=== PATIENT | male | born 1965 | race Two or more races ===

== ENCOUNTER 2017-03-22 11:57 | Emergency (ER) | payer MEDICAID ==
[~2017-03-22 11:57] MED LIST: ALLERCLEAR10 MG PO; AMARYL2 MG PO; ASPIRIN EC LOW81 MG PO; ASPIRIN EC81 MG PO; ASPIRIN81 MG PO; CARBATROL200 MG; CARBATROL200 MG PO; CIPRO500 MG PO; COLACE100 M1 PO; COLACE100 MG PO; CRESTOR10 MG PO; CRESTOR20 MG PO; CRESTOR5 MG; D-VERT25 MG; DARVOCET-N 1001 TAB; DIAZEPAM2 MG; FLEXERIL10 MG PO; GABAPENTIN100 MG PO; GAS GONE80 MG PO; GLIMEPIRIDE4 M1 PO; GLUCOPHAGE1000 M1 PO; GLUCOPHAGE1000 MG; GLUCOPHAGE500 MG PO; GLUCOTROL XL10 M1 PO; GLUCOTROL XL10 MG; HUMULIN R100 U/ML SQ; IBUPROFEN800 MG PO; IMITREX4 MG/0.5 M; IMITREX6 MG/0.; INSULIN; INSULIN R; INVOKAMET 150-1 EACH PO; KEFLEX500 MG PO; LANTUS100 U/ML SC; LEVAQUIN500 MG PO; LEVBID0.375 MG; LISINOPRIL2.5 MG PO; METFORMIN HCL500 PO; METOPROLOL SUCC25 MG PO; MILK OF MAGNESIA PO; NAPROSYN500 MG; NEURONTIN300 M1 PO; NITROQUICK0.4 MG SL; NITROSTAT0.4 MG SL; NORCO 5/325 TAB1 TAB PO; NOVOLIN R100 U/ML SQ; OMEPRAZOLE20 MG PO; OXYCODONE/APAP PO; PLAVIX75 MG PO; PREVPAC PA1 COMB.PKG PO; PRILOSEC20 MG PO; PROTONIX40 M1 PO; PROTONIX40 MG PO; RANEXA500 MG PO; SENOKOT-S TABLE1 TAB PO; TOPROL XL25 MG PO; TRADJENTA5 M1 PO; TRADJENTA5 MG PO; TRAMADOL HCL50 M1 PO; TRAMADOL HCL50 MG PO; TRILEPTAL300 M1 PO; ULTRAM50 M1 PO; ULTRAM50 MG PO; VIBRAMYCIN100 MG/TA1 PO; VITAMIN D 22000 UNIT PO; ZESTRIL2.5 M1 PO; ZESTRIL2.5 MG PO; ZOFRAN4 M2 PO; ZOFRAN4 MG PO; [UNRECOGNIZED DRUG - OTHER]; [UNRECOGNIZED DRUG - OTHER] PO
[2017-03-22] MEDS ORDERED: JANUVIA100 M1 PO (14:00)
[2017-03-22 14:44] LABS: URINE APPEARANCE CLEAR; URINE BILIRUBIN NEGATIVE (NEG); URINE BLOOD SMALL (NEG); URINE COLOR DARK YELLOW; URINE GLUCOSE (UA) NEGATIVE (NEG); URINE KETONE MODERATE (NEG); URINE LEUKOCYTE ESTERASE NEGATIVE (NEG); URINE NITRITE NEGATIVE (NEG); URINE PROTEIN NEGATIVE (NEG); URINE SPECIFIC GRAVITY 1.015 (1.003-1.030)
[2017-03-22 14:48] LABS: EOS % 0.3 % (0-7); HGB-HEMOGLOBIN 14.6 gm/dl (13.5-17.0); IMMATURE GRANULOCYTES ABSOLUTE 0.03 tho/cmm (0-0.03); IMMATURE GRANULOCYTES PERCENT 0.3 % (0-0.3); LYMPH % 15.4 % (20-45); LYMPH ABSOLUTE COUNT 1.8 tho/cmm (0.8-4.5); MCH (MEAN CORPUSCULAR HGB) 29.4 pg (28.0-32.0); MCHC MEAN CORPUSCULAR HGB CONC 34.8 % (32.0-36.0); MCV (MEAN CELL VOLUME) 84.7 fl (82.0-96.0); MEAN PLATELET VOLUME 10.4 cmc (9.4-12.4); MONO % 7.7 % (0-12); MONOCYTE ABSOLUTE COUNT 0.9 tho/cmm (0.0-1.2); NEUTROPHIL ABSOLUTE COUNT 8.8 tho/cmm (1.6-8.0); NEUTROPHIL-AUTOMATED 8.8 tho/cmm (1.6-8.0); NEUTROPHILS % 76.3 % (40-80); PLATELET COUNT 172 tho/cmm (150-450); RED BLOOD COUNT 4.96 mil/cmm (4.40-5.70); RED CELL DISTRIBUTION WIDTH 13.6 % (12.4-16.4); WHITE BLOOD COUNT 11.5 tho/cmm (4.0-10.0)
[2017-03-22 15:01] LABS: ALB/GLOB RATIO 0.6 (0.8-2.0); ALBUMIN 3.2 g/dl (3.5-5.0); ALKALINE PHOSPHATASE 63 U/L (33-138); ALT/SGPT 20 U/L (12-78); ANION GAP 13 mmol/L (0-20); AST/SGOT 17 U/L (10-40); BILIRUBIN,TOTAL 0.5 mg/dl (0.0-1.5); BLOOD UREA NITROGEN 7 mg/dl (6-24); C-REACTIVE PROTEIN 11.1 mg/dl (0-0.9); CALCIUM 8.7 mg/dl (8.5-10.5); CARBON DIOXIDE-VENOUS 22 mmol/L (22-32); CHLORIDE 105 mmol/l (96-110); CREATININE 0.61 mg/dl (0.60-1.30); GLUCOSE 124 mg/dL (70-110); LIPASE 96 U/L (73-393); POTASSIUM 3.9 mmol/L (3.7-5.1); SODIUM 136 mmol/L (135-145); eGFR VALUE FOR BLACK >90 mL/Min
[2017-03-22 15:08] LABS: URINE EPITHELIAL CELLS 0-1 /[HPF] (0-10); URINE WBC 0 /[HPF] (0-5)
[2017-03-22] MEDS ORDERED: CIPRO500 M2 PO (16:52)
[2017-03-22] MEDS ORDERED: NORCO 5-325 TA1 EACH PO (16:52)
== END 2017-03-22 17:15 ==
LOC: EDMED 11:57
PROVIDERS: Physician Assistant
DX: K52.9 Noninfective gastroenteritis and colitis, unspecified (principal); R51 Headache; E11.9 Type 2 diabetes mellitus without complications; I10 Essential (primary) hypertension; E78.5 Hyperlipidemia, unspecified; Z98.890 Other specified postprocedural states
CPT/HCPCS: J2270; J2405; J7030; Q9967